=== PATIENT | female | born 1940 | race Caucasian/White ===

== ENCOUNTER → 2017-04-21 | Outpatient (CLI) | payer MEDICARE ==
[~2017-04-21] MED LIST: ALPR-138 PO; BUPR150T3 PO; CALC600T34 PO; ETOD400T PO; HYDR-2768 PO; HYDR10TA16 PO; LABE300T PO; TAB-TAB PO; VENL75TA91 PO; VITA400C70 PO
--- NOTE | 2017-04-21 16:19 | RADRPT ---
EXAM DATE/TIME: 04/21/2017 13:52 [place] COMPARISON: No previous studies available for comparison. INDICATIONS : Tremors. DOSE: 4.8 mCi Ioflupane Iodine-123 in 2.5 ml total volume MEDICATION(S): 130 mg Potasium Iodine PO one hour prior to injection SPECT IMAGIN.5 hrs IMAGNG: SPECT/CT imaging with fusion was performed. RADIATION DOSE: 30.27 CTDIvol (mGy) MEDICAL HISTORY : Parkinson's. Tremors. SURGICAL HISTORY : None. ENCOUNTER: Initial ACUITY: 1 week PAIN SCALE: 0/10 LOCATION: Head. TECHNIQUE: SPECT imaging of the brain was performed in sagittal, axial and coronal planes. Attenuation correctio n was performed with computed tomography and both the attenuation correction and non-attenuation ann ected data sets were reviewed. FINDINGS: There is normal biodistribution of radionuclide with symmetric crescent-shaped areas of activity are in the striatum which appears distinct relative to the surrounding brain tissue. CONCLUSION: Negative exam. Normal uptake in the striatum. Adal Henry MD on April 21, 2017 at 16:15 Board Certified Radiologist. This report was verified electronically.
== END ==
LOC: HRAD 09:54
DX: G20 Parkinson's disease (principal)
CPT/HCPCS: 78607; A9584